=== PATIENT | male | born 1995 | race Caucasian/White ===

== ENCOUNTER 2020-02-01 20:53 | Emergency (ER) | payer MEDICAID ==
[2020-02-01] MEDS ORDERED: Ketorolac 60 MG/2 ML SDV IM ONE (21:24)
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
[2020-02-01 21:32] VITALS: BP 153/73; PULSE 107
--- NOTE | 2020-02-01 22:11 | CRLCR ---
Indication: Trauma Technique: Three views of the left ankle Comparison: None available Findings: Bones: A small ossific fragment at the lateral aspect of the distal calcaneus which could represent a fracture fragment or an ossicle. No dislocation. Joint spaces: Unremarkable. Soft tissues: Soft tissue swelling laterally and anteriorly. Impression: A small fracture fragment versus an ossicle adjacent to the lateral aspect of the distal calcaneus. Correlate for focal tenderness and if indicated, with additional views. Dictated by Noe Nogueira MD @ 02/01/2020 10:08:04 PM Dictated by: Noe Nogueira MD @ 02/01/2020 22:10:54 (Electronically Signed)
== END 2020-02-01 22:33 | disposition home or self-care (01) ==
LOC: JP.ED 20:53
DX: M25.572 Pain in left ankle and joints of left foot (principal); F17.210 Nicotine dependence, cigarettes, uncomplicated; Z88.5 Allergy status to narcotic agent
CPT/HCPCS: 73610; 96372; 99283; J1885

== ENCOUNTER 2020-09-22 18:24 | Emergency (ER) | payer MEDICAID ==
[2020-09-22 18:38] VITALS: BP 141/71; PULSE 82
--- NOTE | 2020-09-22 19:09 | EDM.PDOC ---
ED HPI GENERAL MEDICAL PROBLEM - General Chief Complaint: Diabetic Complaint Stated Complaint: TOOTH ACH Time Seen by Provider: 09/22/20 18:40 Source of Information: Reports: Patient History Limitations: Reports: No Limitations - History of Present Illness INITIAL COMMENTS - FREE TEXT/NARRATIVE: Patient presents for help with dental pain. He has a long history of extensive dental caries and several left-sided molars are becoming very painful. He is scheduled to see a dentist after the first of the year. He took 13 regular strength Tylenol in the last 24 hours for pain and that worried his girlfriend who told him he needed to come in and be seen. No bleeding or discharge from the gums. No other concerns apart from his teeth. Duration: Chronic Location: Reports: Head Severity: Moderate Improves with: Reports: None Worsens with: Reports: Eating Associated Symptoms: Reports: No Other Symptoms Left Oral/Mouth Pain Score (Numeric/FACES): 7 - Related Data Allergies Allergy/AdvReac Type Severity Reaction Status Date / Time morphine Allergy Itching Verified 11/29/16 02:20 Home Meds: Home Meds Acetaminophen [Tylenol] 650 mg PO Q2HR 09/22/20 [History] Past Medical History HEENT History: Reports: Other (See Below) Other HEENT History: L oral pain Musculoskeletal History: Reports: Fracture, Other (See Below) Other Musculoskeletal History: ankle fracture 02/01/20 - Past Surgical History HEENT Surgical History: Reports: Tonsillectomy Musculoskeletal Surgical History: Reports: None Social & Family History - Tobacco Use Tobacco Use Status *Q: Current Every Day Tobacco User Years of Tobacco use: 15 Packs/Tins Daily: 0.5 - Caffeine Use Caffeine Use: Reports: Energy Drinks, Soda - Recreational Drug Use Recreational Drug Use: No ED ROS GENERAL - Review of Systems Review Of Systems: Comprehensive ROS is negative, except as noted in HPI. ED EXAM GENERAL NO PERIP PULSE - Physical Exam Exam: See Below Exam Limited By: No Limitations General Appearance: Alert, No Apparent Distress Throat/Mouth: Other (There are multiple decayed teeth on the mandibular and maxillary gum areas. There is gum swelling in several areas throughout the mouth. No obvious exudate.) Course - Vital Signs Last Recorded V/S: Last Vital Signs Temp Pulse 82 09/22/20 18:38 Resp 18 09/22/20 18:38 BP 141/71 H 09/22/20 18:38 Pulse Ox - Re-Assessments/Exams Free Text/Narrative Re-Assessment/Exam: 09/22/20 20:38 We discussed ways of improving comfort using dental wax or chewing gum to cover broken teeth. I recommend ibuprofen 800 mg 3 times a day regularly. Prescription sent for amoxicillin 500 mg, 21 tablets; use as directed. He should keep his scheduled dental evaluation in October. Return to ER if feeling worse however we are limited in what we can do for this longstanding problem. He understands. Departure - Departure Time of Disposition: 19:07 Disposition: Home, Self-Care Clinical Impression: Caries involving multiple surfaces of tooth - Discharge Information Instructions: Dental Caries, Pediatric Referrals: PCP,None [Primary Care Provider] - Forms: ED Department Discharge Additional Instructions: Use ibuprofen 800 mg 3 times a day or Aleve 440 mg twice a day regularly for the next week or so. Start antibiotic, amoxicillin, and take until complete. Use dental wax or a piece of soft chewing gum to cover the exposed edges of teeth and reduce irritation from air and liquid. Keep scheduled dental appointment. Sepsis Event Note (ED) - Evaluation Sepsis Screening Result: No Definite Risk - Focused Exam Vital Signs: Vital Signs Pulse Resp BP 09/22/20 18:38 82 18 141/71 H
== END 2020-09-22 19:25 | disposition home or self-care (01) ==
LOC: JP.ED 18:24
DX: K02.9 Dental caries, unspecified (principal); F17.210 Nicotine dependence, cigarettes, uncomplicated; Z90.49 Acquired absence of other specified parts of digestive tract; Z88.5 Allergy status to narcotic agent
CPT/HCPCS: 99282; 99283

== ENCOUNTER 2024-01-21 23:42 | Emergency (ER) | payer MEDICAID ==
[2024-01-21 23:55] VITALS: BP 156/87; PULSE 89
[2024-01-22] MEDS: Tetracaine HCl/PF 0.5% 4 ML Bottle EYEBOTH ONE (00:04)
[2024-01-22] MEDS: Erythromycin Base 0.5% Ophth Oint 3.5 GM Tube EYEBOTH ONE (00:34)
== END 2024-01-22 00:54 | disposition home or self-care (01) ==
LOC: JP.ED 23:42
DX: S05.01XA Injury of conjunctiva and corneal abrasion without foreign body, right eye, initial encounter (principal); Z88.5 Allergy status to narcotic agent; W20.8XXA Other cause of strike by thrown, projected or falling object, initial encounter; Y92.007 Garden or yard of unspecified non-institutional (private) residence as the place of occurrence of the external cause; Y93.H2 Activity, gardening and landscaping
CPT/HCPCS: 99283; A9270-GY